=== PATIENT | male | born 1995 | race Caucasian/White ===

== ENCOUNTER 2018-02-19 03:08 | Observation (INO) | payer BC ==
--- NOTE | 2018-02-19 03:13 | EDPHY ---
H & P Stated Complaint: Lac to L hand Time Seen by Provider: 02/19/18 03:13 HPI/ROS: HPI CHIEF COMPLAINT: Laceration to the palm of left hand deep with arterial bleed. HISTORY OF PRESENT ILLNESS: A 22-year-old male, intoxicated male, otherwise healthy, history of depression, presents emergency room with a hand laceration palmar side very deep approximately thenar eminence, with an arterial injury. Patient arrived by 911 EMS to the emergency room. He had a tourniquet placed by EMS. This was taken down upon arrival to the emergency room. There is a pulsating arterial bleed to the left hand palmar aspect proximal thenar eminence. Significant bleeding. A pressure dressing has been placed upon arrival. The patient is hemodynamically stable upon arrival. No other significant injuries. Patient is unsure exactly how he injured his hand however thinks he may have fell on a piece of glass or metal. Patient reports also had a large amount of alcohol this evening. Patient reports to me is having trouble moving his index finger and middle finger on the left hand. Right-hand dominant. Left arm tourniquet was taken down upon arrival to the emergency room. Estimated time of tourniquet 15 min. Past Medical History: Depression Past Surgical History: No recent surgery Social History: Large amount of alcohol this evening. [employer] student. Family History: Noncontributory ROS REVIEW OF SYSTEMS: 10 Systems were reviewed and negative with the exception of the elements mentioned in the history of present illness. Exam Constitutional triage nursing summary reviewed, vital signs reviewed, awake/ alert. Eyes normal conjunctivae and sclera, EOMI, PERRLA. HENT normal inspection, atraumatic, moist mucus membranes, no epistaxis, neck supple/ no meningismus, no raccoon eyes. Respiratory clear to auscultation bilaterally, normal breath sounds, no respiratory distress, no wheezing. Cardiovascular rate normal, regular rhythm, no murmur, no edema, distal pulses normal. Gastrointestinal soft, non-tender, no rebound, no guarding, normal bowel sounds, no distension, no pulsatile mass. Genitourinary no CVA tenderness. Musculoskeletal left hand: Palmar surface comma 3 cm deep laceration with arterial injury. Difficulty moving the index and middle finger with flexion. Questionable tendon laceration. Otherwise good radial pulse, good cap refill. No dusky fingers. Pulsating artery present palmar side proximal thenar eminence. no midline vertebral tenderness, full range of motion, no calf swelling, no tenderness of extremities, no meningismus, good pulses, neurovascularly intact. Skin pink, warm, & dry, no rash, skin atraumatic. Neurologic awake, alert and oriented x 3, AAOx3, moves all 4 extremities equally, motor intact, sensory intact, CN II-XII intact, normal cerebellar, normal vision, normal speech. Psychiatric normal mood/affect. Heme/Lymph/Immune no lymphadenopathy. Differential Diagnosis: Includes but is not limited to deep left hand laceration, soft tissue injury, arterial injury, tendon injury, bony abnormality , foreign body Medical Decision Making: Plan for this patient I have consult Hand surgery to evaluate this injury. Will received 2 g Ancef, IV fluids, serum alcohol level, blood work, x-ray to rule out foreign body. Re-evaluation: 0327: Dr. Sanders with Hand surgery consult. Serum alcohol 224. Dr. Sanders seen and evaluate the patient. Plan for take patient to the OR for repair of deep and laceration with arterial injury. Source: Patient, EMS - Personal History Current Tetanus/Diphtheria Vaccine: Yes Current Tetanus Diphtheria and Acellular Pertussis (TDAP): Yes - Medical/Surgical History Hx Asthma: No Hx Chronic Respiratory Disease: No Hx Diabetes: No Hx Cardiac Disease: No Hx Renal Disease: No Hx Cirrhosis: No Hx Alcoholism: No Hx HIV/AIDS: No Hx Splenectomy or Spleen Trauma: No Other PMH: depression - Social History Smoking Status: Never smoked Constitutional: Initial Vital Signs Temperature (C) 37.0 C 02/19/18 03:11 Heart Rate 102 H 02/19/18 03:11 Respiratory Rate 18 02/19/18 03:11 Blood Pressure 140/87 H 02/19/18 03:11 O2 Sat (%) 97 02/19/18 03:11 O2 Delivery Mode Room Air Allergies/Adverse Reactions: No Known Allergies Allergy (Verified 02/19/18 20:14) Home Medications: Medication Instructions Recorded NK [No Known Home Meds] 02/19/18 Medical Decision Making - Data Points Laboratory Results: Laboratory Results 02/19/18 03:20 02/19/18 03:20 Medications Given: Discontinued Medications Bupivacaine HCl (Sensorcaine 0.5% Vial) Confirm Administered Dose 30 ml .ROUTE .STK-MED ONE Stop: 02/19/18 04:43 Last Admin: 02/19/18 05:00 Dose: 10 ml Sodium Chloride (Ns) 1,000 mls @ 0 mls/hr IV ONCE ONE PRN Reason: Wide Open Stop: 02/19/18 03:18 Last Admin: 02/19/18 03:35 Dose: 1,000 mls Cefazolin Sodium 2 gm/ (Dextrose) 100 mls @ 200 mls/hr IV EDNOW ONE PRN Reason: Protocol Stop: 02/19/18 03:59 Last Admin: 02/19/18 03:34 Dose: 100 mls Cefazolin Sodium/Dextrose (Ancef 2 Gm) 100 mls @ 200 mls/hr IV Q8H ANAYA PRN Reason: Protocol Stop: 02/19/18 19:29 Last Admin: 02/19/18 12:00 Dose: 100 mls Midazolam HCl (Versed) 2 mg IVP ONCALL ONE Stop: 02/19/18 04:11 Last Admin: 02/19/18 04:19 Dose: 2 mg Departure - Departure Disposition: [facility] Clinical Impression: Hand laceration Qualifiers: Encounter type: initial encounter Foreign body presence: without foreign body Laterality: left Qualified Code(s): S61.412A - Laceration without foreign body of left hand, initial encounter Condition: Good
[2018-02-19] MEDS ORDERED: NS 1,000 ML IV ONE (03:17)
[2018-02-19] MEDS ORDERED: ceFAZolin 2 GM in NS 100 ML IV ONE (03:18)
[2018-02-19] MEDS ORDERED: ceFAZolin 2 GM in D5W 100 ML IV ONE (03:30)
[2018-02-19 03:32] LABS: PLATELET COUNT 234 10^3/uL (150-400)
[2018-02-19 03:39] LABS: INR 1.15 (0.83-1.16); PROTIME(PATIENT) 14.9 SEC (12.0-15.0)
--- NOTE | 2018-02-19 04:06 | PDANEPAE ---
ANE History of Present Illness Repair of laceration to hand artery ANE Past Medical History - Cardiovascular History Hx Hypertension: No Hx Arrhythmias: No Hx Chest Pain: No Hx Coronary Artery / Peripheral Vascular Disease: No Hx CHF / Valvular Disease: No Hx Palpitations: No - Pulmonary History Hx COPD: No Hx Asthma/Reactive Airway Disease: No Hx Recent Upper Respiratory Infection: No Hx Oxygen in Use at Home: No Hx Sleep Apnea: No - Neurologic History Neurologic History Comment: concussion about 4 years - Endocrine History Hx Diabetes: No Hypothyroid: No Hyperthyroid: No Obesity: no - Renal History Hx Renal Disorders: No - Liver History Hx Hepatic Disorders: No - Neurological & Psychiatric Hx Hx Neurological and Psychiatric Disorders: Yes Neurological / Psychiatric History Comment: depression, insomnia, on Trazodone and "another antidepressant" - Cancer History Hx Cancer: No - Congenital Disorder History Hx Congenital Disorders: No - GI History GERD: no Hx Gastrointestinal Disorders: No - Chronic Pain History Chronic Pain: No - Surgical History Prior Surgeries: none ANE Review of Systems Review of Systems: - Exercise capacity METS (RN): 4 METS ANE Patient History - Allergies Allergies/Adverse Reactions: No Known Allergies Allergy (Unverified 02/19/18 03:10) - Home Medications Home medications: home medication list seen and reviewed Home Medications: NK [No Known Home Meds] 02/19/18 [Last Taken Unknown] - NPO status NPO Since - Liquids (Date): 02/18/18 NPO Since - Liquids (Time): 19:00 NPO Since - Solids (Date): 02/19/18 NPO Since - Solids (Time): 02:00 - Smoking Hx Smoking Status: Never smoked Marijuana use: Yes - Alcohol Use Alcohol Use: Other (10 drinks/week) - Family Anes Hx Family Anes Hx: none ANE Labs/Vital Signs - Labs Result Diagrams: 02/19/18 03:20 02/19/18 03:20 - Vital Signs Blood Pressure: 140/87 Heart Rate: 102 Respiratory Rate: 18 O2 Sat (%): 97 Height: 187.96 cm Weight: 90.718 kg ANE Physical Exam - Airway Neck exam: FROM Mallampati Score: Class 1 Mouth exam: normal dental/mouth exam - Pulmonary Pulmonary: clear to auscultation - Cardiovascular Cardiovascular: regular rate and rhythym - ASA Status ASA Status: II, E ANE Anesthesia Plan Anesthesia Plan: general endotracheal anesthesia
[2018-02-19] MEDS ORDERED: MIDAZOLAM 2 MG/2 ML VIAL IVP ONE (04:10)
[2018-02-19] MEDS ORDERED: MIDAZOLAM 2 MG/2 ML VIAL ONE ×2 (04:13→04:28)
[2018-02-19] MEDS ORDERED: PROPOFOL 200 MG/20 ML VIAL ONE (04:13)
[2018-02-19] MEDS ORDERED: fentaNYL 250 MCG/5 ML INJ ONE (04:13)
[2018-02-19] MEDS ORDERED: DEXAMETHASONE 4 MG/ML VIAL ONE (04:14)
[2018-02-19] MEDS ORDERED: ROCURONIUM 50 MG/5 ML VIAL ONE (04:14)
--- NOTE | 2018-02-19 04:39 | GHP ---
DATE OF ADMISSION: 02/19/2018 REASON FOR CONSULTATION: Arterial laceration, left hand, palm. 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 A field tourniquet was put on. He was b rought to the emergency department. Tourniquet was taken down. He had a laceration to the arterial arch of his palm. A compression dressing was applied. I saw him in the emergency department. He is going to be brought urgently up to the operating room for fixation of his artery. PRIOR MEDICAL HISTORY: Depression. SURGICAL HISTORY: None. ALLERGIES: None. SOCIAL HISTORY: College student. Lives here in town. Parents live in [place]. Does not smoke. Does report alcohol use. He used alcohol tonight and does appear intoxicated. PHYSICAL EXAM: VITAL SIGNS: Stable. GENERAL: He is alert and oriented x3. Answers questions appr opriately. HEENT: Normocephalic, atraumatic. Extraocular muscles intact. NECK: Supple. There is no lymphadenopathy. No JVD. CHEST: Clear to auscultation. CARDIOVASCULAR: Regular rate and rhyt hm. ABDOMEN: Soft, nontender, nondistended. EXTREMITIES: He has a deep laceration to the palm of his left hand. He has arterial bleeding, is unable to move his thumb, index, long fingers. ASSESSMENT: Arterial laceration with flexor tendon injuries, left hand. PLAN: We will proceed urgently to the operating room for arterial repair. We will plan on keeping h im for observation. He will need to return to the operating room in the next week or two for explora tion and repair of tendon injuries to his hand. /[id number]/MODL
[2018-02-19] MEDS ORDERED: BUPIVACAINE 0.5% 30 ML SDV ONE (04:42)
[2018-02-19] MEDS ORDERED: ONDANSETRON 4 MG/2 ML VIAL ONE (05:08)
[2018-02-19] MEDS ORDERED: GLYCOPYRROLATE 0.2 MG/1 ML VIAL ONE (05:09)
[2018-02-19] MEDS ORDERED: NEOSTIGMINE METHYLSULFATE 5 MG/5 ML SYR ONE (05:09)
[2018-02-19] MEDS ORDERED: fentaNYL 100 MCG/2 ML INJ IVP PRN (05:13)
[2018-02-19] MEDS ORDERED: NALOXONE HCL 0.4 MG/ML INJ IVP PRN (05:13)
[2018-02-19] MEDS ORDERED: ONDANSETRON 4 MG/2 ML VIAL IVP PRN (05:13)
--- NOTE | 2018-02-19 05:27 | POSTOPPROG ---
Post Op Note Date of Operation: 02/19/18 Surgeon: Major Sanders Anesthesiologist: Nacho Anesthesia: GET(General Endotracheal) Pre-op Diagnosis: arterial laceration left palm Post-op Diagnosis: same Procedure: ligation digital artery left palm Findings: digital artery laceration, flexor tendon laceration index and long Inf/Abcess present in the surg proc area at time of surgery?: No EBL: 100-500 Total fluids administered: 1000ml
[2018-02-19] MEDS ORDERED: HYDROCODONE/APAP 5/325 TAB PO PRN (05:33)
[2018-02-19] MEDS ORDERED: NS 1,000 ML IV SCH (05:45)
--- NOTE | 2018-02-19 05:50 | POSTANESTH ---
Post Anesthetic Evaluation Cardiovascular Status: Normal, Stable Respiratory Status: Normal, Stable Level of Consciousness/Mental Status: Can Participate in Eval Pain Control: Adequate, Prn Tx Ordered Nausea/Vomiting Control: Adequate, Prn Tx Ordered Complications Possibly Related to Anesthesia: None Noted
[2018-02-19] MEDS ORDERED: ONDANSETRON DISINTEGRATING 4 MG TAB PO PRN (05:59)
[2018-02-19] MEDS ORDERED: ceFAZolin 2 GM/DEXTROSE 100 ML IV SCH ×2 (06:00→11:00)
--- NOTE | 2018-02-19 06:00 | GOP ---
DATE OF OPERATION: 02/19/2018 SURGEON: Major Sanders MD ANESTHESIOLOGIST: Dr. Griffith PREOPERATIVE DIAGNOSIS: Laceration of artery, left palm. POSTOPERATIVE DIAGNOSIS: Laceration of artery, left palm. PROCEDURE PERFORMED: Digital artery ligation, left palm. FINDINGS: ESTIMATED BLOOD LOSS: 200 mL. DESCRIPTION OF PROCEDURE: After appropriate informed consent was obtained, the patient was taken to the operating room. A time-out was performed. Patient was identified. He had received 2 g of Ancef in the emergency department. Following general endotracheal tube anesthesia, left upper extremity was prepped and draped in usual sterile fashion. Prior to prepping, we put up the tourniquet, taken off the compression dressing. We exposed our field. We then let the tourniquet down. The digital artery was lacerated with loss of arterial material just as it branched off the superficial volar arch. I was able to cauterize this with electrocautery. The flexor tendons were completely lacerated to the index and long finger. The wound was irrigated. Skin was loosely closed with 3-0 nylon. I placed him in a volar splint with the fingers down into flexion. I instilled 10 mL of 0.5% Marcaine plain around the incision. He was awakened from anesthesia and taken to the recovery room in satisfactory condition. There were no immediate intraoperative complications. COMPLICATIONS: None. DRAINS: None. TOTAL TOURNIQUET TIME: 14 minutes. HISTORY: Clarence is a 22-year-old, [employer] student, who cut his hand on a bottle tonight and sustained an arterial laceration. Unable to get control of this in the emergency department. He was brought up to the operating room for ligation of the artery. It was noted at the time of injury that he had injuries to both the index and long finger flexor tendons. He was intoxicated, so it is unclear the neural integrity at this time. /[id number]/MODL MTDD
[2018-02-19 15:58] VITALS: BP 125/68
[2018-02-20] MEDS ORDERED: buPROPion XL 150 MG TAB PO SCH (09:00)
== END 2018-02-19 17:46 | disposition home or self-care (01) ==
LOC: F3N 06:30
PROVIDERS: ADMIT Orthopaedic Surgery; ATTEND Orthopaedic Surgery
PROC: 03QF0ZZ Repair Left Hand Artery, Open Approach (ICD-10-PCS; principal; 2018-02-19 04:00)
DX: S61.412A Laceration without foreign body of left hand, initial encounter (principal); S66.121A Laceration of flexor muscle, fascia and tendon of left index finger at wrist and hand level, initial encounter; S66.123A Laceration of flexor muscle, fascia and tendon of left middle finger at wrist and hand level, initial encounter; W26.9XXA Contact with unspecified sharp object(s), initial encounter; X58.XXXA Exposure to other specified factors, initial encounter; F10.920 Alcohol use, unspecified with intoxication, uncomplicated; Y90.7 Blood alcohol level of 200-239 mg/100 ml; F32.9 Major depressive disorder, single episode, unspecified
CPT/HCPCS: 35207; 73130; G0378; 96365; G0480; J0690; J1100; J2250; J2405; J2704; J2710; J3010

== ENCOUNTER 2018-02-19 20:09 | Emergency (ER) | payer BC ==
[2018-02-19 20:14] VITALS: BP 151/88
--- NOTE | 2018-02-19 20:39 | EDPHY ---
H & P Smoking Status: Never smoked Time Seen by Provider: 02/19/18 20:20 HPI/ROS: CHIEF COMPLAINT: Recheck hand HISTORY OF PRESENT ILLNESS: 22-year-old male seen the ER earlier today after a fall which point sustained laceration was left palmar artery, went to the operating room with exploratory surgery had ligation of the left digital artery. Presents to the ER stating that after returning home he noticed some mild tingling in his fingers and therefore came to the ER for re-evaluation. His pain is controlled. He has been keeping the area elevated. Denies discoloration of the digits. PHYSICAL EXAM (Prior to examination, patient consented to physical exam, hands were washed and my usual and customary physical exam procedures followed) 1) GENERAL: Well-developed, well-nourished, alert and oriented. Appears to be in no acute distress. 2) HEAD: Normocephalic 3) HEENT: sclera anicteric 4) LUNGS: Breathing comfortably. 5) SKIN: Normal coloration 6) MUSCULOSKELETAL: The patient's splint is taken down pain careful attention not to move his hand wrist or fingers. The incision site appears well with no dehiscence and no signs of infection. No fetid odor. He has normal coloration to the hand and fingers with brisk capillary refill, soft compartments throughout the hand as well as the wrist. 7) NEUROLOGIC: Full sensation all digits DIFFERENTIAL DIAGNOSIS: In no particular order including but not limited to postoperative bleeding, compartment syndrome, infection (Dhiraj,Neptali Kristie) Constitutional: Initial Vital Signs Temperature (C) 36.9 C 02/19/18 20:12 Heart Rate 96 02/19/18 20:12 Respiratory Rate 16 02/19/18 20:12 Blood Pressure 151/88 H 02/19/18 20:12 O2 Sat (%) 94 02/19/18 20:12 O2 Delivery Mode Room Air Allergies/Adverse Reactions: No Known Allergies Allergy (Verified 02/19/18 20:14) Home Medications: Medication Instructions Recorded NK [No Known Home Meds] 02/19/18 MDM/Departure - MDM ED Course/Re-evaluation: This patient's hand was resplinted with his OR splint. At this time he has no evidence of infection or compartment syndrome. I recommended continued elevation. Today is Tuesday. He is planning on following up with his hand surgeon Dr. Major Sanders on Tuesday or Tuesday. In the meantime he feels comfortable being discharged home. Recommend continued elevation. Usual and customary orthopedic precautions and instructions provided. I saw this patient independently based on established practice protocols. Care of patient under supervision of secondary supervising physician Dr Hung . (Neptali Hearn) The patient was evaluated and managed by the Physician [employer] Trouble Shooter. My co- signature indicates that I have reviewed this chart and I agree with the findings and plan of care as documented. I am the secondary supervising physician. (Eugenie Hung) - Depart Disposition: Home, Routine, Self-Care Clinical Impression: Paresthesias in left hand Condition: Good Instructions: Paresthesia (ED) Additional Instructions: Return to the ER immediately if you experience discoloration, have worsening pain, numbness, tingling, or any other symptoms that concern you. If you received x-rays in the emergency department today, be advised, that ligamentous , tendon, muscular, and other non-bony injury cannot be fully ruled out. Try to keep your affected extremity elevated above the level of your chest, and keep cold packs on the affected area, for the next 48 hours. Referrals: Major Sanders MD [Medical Doctor] - 02/21/18
== END 2018-02-19 20:44 | disposition home or self-care (01) ==
DX: R20.2 Paresthesia of skin (principal)